=== PATIENT | male | born 1980 | race Two or more races ===

== ENCOUNTER 2019-12-11 20:24 | Emergency (ER) | payer SELFPAY ==
[~2019-12-11] VITALS: Ht 172.7 cm; Wt 78.0 kg
[2019-12-11 21:23] VITALS: BP 127/85
[2019-12-11] MEDS ORDERED: SMZ/TMP 800/160MG TABLET. PO ONE (22:45)
[2019-12-11] MEDS ORDERED: predniSONE 10 MG TABLET PO ONE (22:45)
[2019-12-11] MEDS ORDERED: METH4TAB2 PO (22:46)
[2019-12-11] MEDS ORDERED: SULF1TAB24 PO (22:46)
--- NOTE | 2019-12-11 22:47 | PHYS DOC ---
Past Medical History Past Medical History: No Pertinent History Past Surgical History: No Surgical History Smoking Status: Never Smoker Alcohol Use: Rarely General Adult EDM: Chief Complaint: INSECT BITE HPI: HPI: Patient is a 39 year old male who presents with complaint of redness, pain and warmth to his right arm at the elbow joint after being bitten by a spider last night. Patient states that he didn't see the spider when it bit him and states that it was not painful at first. He states that the area had a small red bump this morning when he woke up and then later this evening, there was redness and what looked like a blood blister underneath the skin. He states that he has also had some redness and itching to his hands and his feet since the bite.[] Review of Systems: Review of Systems: Constitutional: Denies fever or chills. [] Respiratory: Denies cough or shortness of breath. [] Cardiovascular: Denies chest pain or edema. [] Integument: Complains of redness and pruritus as well has tenderness and warmth to the right arm. [] Neurologic: Denies headache, focal weakness or sensory changes. [] Heart Score: Risk Factors: Risk Factors: DM, Current or recent (<one month) smoker, HTN, HLP, family history of CAD, obesity. Risk Scores: Score 0 - 3: 2.5% MACE over next 6 weeks - Discharge Home Score 4 - 6: 20.3% MACE over next 6 weeks - Admit for Clinical Observation Score 7 - 10: 72.7% MACE over next 6 weeks - Early Invasive Strategies Physical Exam: PE: Constitutional: Well developed, well nourished, no acute distress, non-toxic appearance. [] Cardiovascular: Regular rate and rhythm[] Lungs & Thorax: Bilateral breath sounds clear to auscultation [] Skin: Warm, dry, right arm demonstrates redness and warmth with tenderness at the elbow joint with small area of dark ecchymosis. [] Extremities: No cyanosis, no clubbing, ROM intact, no edema. [] Current Patient Data: Vital Signs: Vital Signs Date Time Temp Pulse Resp B/P (MAP) Pulse Ox O2 Delivery O2 Flow Rate FiO2 12/10/20 21:23 98.8 97 16 127/85 (99) 98 Room Air 98.8 EKG: EKG: [] Radiology/Procedures: Radiology/Procedures: [] Course & Med Decision Making: Course & Med Decision Making Pertinent Labs and Imaging studies reviewed. (See chart for details) [] Dragon Disclaimer: Deepakon Disclaimer: This electronic medical record was generated, in whole or in part, using a voice recognition dictation system. Departure Departure Impression: Primary Impression: Spider bite Qualified Codes: T63.301A - Toxic effect of unspecified spider venom, accidental (unintentional), initial encounter Disposition: HOME, SELF-CARE Condition: STABLE Referrals: NO PCP (PCP) Patient Instructions: Spider Bite Scripts Sulfamethoxazole/Trimethoprim (BACTRIM DS TABLET) 1 Each Tablet 1 TAB PO BID for 10 Days, #20 TAB 0 Refills Prov: KAYLIE MCMAHON Jr. DO 12/11/19 Methylprednisolone (MEDROL) 4 Mg Tab.ds.pk 1 PKG PO UD, #1 PKG Prov: KAYLIE MCMAHON Jr. DO 12/11/19 KAYLIE MCMAHON Jr. DO Dec 11, 2019 22:46
== END 2019-12-11 23:15 | disposition home or self-care (01) ==
LOC: ER 20:24
DX: T63.301A Toxic effect of unspecified spider venom, accidental (unintentional), initial encounter (principal); L29.9 Pruritus, unspecified; W57.XXXA Bitten or stung by nonvenomous insect and other nonvenomous arthropods, initial encounter; Y93.89 Activity, other specified; Y92.89 Other specified places as the place of occurrence of the external cause; Y99.8 Other external cause status
CPT/HCPCS: 99283; J7512